=== PATIENT | female | born 1975 | race Hispanic/Latino ===

== ENCOUNTER → 2021-05-06 16:40 | Outpatient (CLI) | payer OTHER, SELFPAY ==
--- NOTE | ~2021-05-06 | MM_ITS ---
EXAMINATION: MM screening [facility] BI w opal HISTORY: Screening TECHNIQUE: Craniocaudal and mediolateral oblique 3-D tomosynthesis images were obtained and synthetic 2-D images were generated. CAD analysis was submitted and interpreted. COMPARISON: Comparison to multiple prior studies sequentially, with oldest reviewed study dated 04/2015. BREAST PARENCHYMAL COMPOSITION: There are scattered areas of fibroglandular density. FINDINGS: There is no evidence of suspicious mass, calcification, or architectural distortion to sugg est malignancy in either breast. There has been no suspicious interval change. IMPRESSION: 1. No mammographic evidence of malignancy. 2. Recommend routine screening mammography in one year. BI-RADS Category 1: Negative Reviewed, dictated and finalized at location A.
== END ==
PROVIDERS: PCP Family Medicine; Visit Provider Nurse Practitioner
DX: Z12.31 Encounter for screening mammogram for malignant neoplasm of breast (principal)
CPT/HCPCS: 77063; 77067

== ENCOUNTER 2022-09-02 15:54 | Emergency (ER) | payer OTHER, SELFPAY ==
--- NOTE | ~2022-09-02 | XR_ITS ---
EXAMINATION: XR knee RT min 4V DATE: 09/02/2022 16:38 INDICATION: Right knee pain. Injury. TECHNIQUE: 4 views of right knee were obtained. COMPARISON: None. FINDINGS: Bone alignment is normal. No fracture. There is mild tricompartmental osteoarthritis charac terized by tiny osteophytes. No joint space narrowing. No knee joint effusion. IMPRESSION: 1. Mild right knee osteoarthritis. Reviewed, dictated and finalized at location A. R SH[employer]S
[2022-09-02 16:04] VITALS: BP 146/72; PULSE 96; RESP 16; TEMP 36.5; O2SAT 100
--- NOTE | 2022-09-02 16:45 | ED.LOWEXIN ---
HPI - Extremity Injury (Lower) General Chief Complaint: Extremity Injury, Lower Stated Complaint: R KNEE INJURY Time Seen by Provider: 09/02/22 16:29 Source: patient Mode of arrival: ambulatory Limitations: no limitations History of Present Illness HPI Narrative: Patient presents today complaining of a right knee injury. At 2:45 a.m. this afternoon she was taking her dog for a walk when she twisted in the entryway to her home, feeling a pop in her knee and sudden pain. She currently rates her pain 7/10 has tried no [id number]-[id number] treatment prior to arrival. She also reports some tingling to her right foot. Pain increases significantly with weight-bearing or movement of the knee. Related Data Allergies Allergy/AdvReac Type Severity Reaction Status Date / Time Penicillins Allergy Unknown Nausea Verified 09/02/22 16:13 Review of Systems Review of Systems: CONSTITUTIONAL: Denies body aches, fever, chills, or sweats. EYES: Denies visual changes, redness, or discharge. ENT: Denies rhinorrhea, congestion, sore throat, or otalgia. CARDIOVASCULAR: Denies chest pain, palpitations, or edema. RESPIRATORY: Denies cough or dyspnea. GASTROINTESTINAL: Denies abdominal pain, nausea, vomiting, or diarrhea. GENITOURINARY: Denies dysuria or hematuria. SKIN: Denies rash, itching, or wounds. MUSCULOSKELETAL: Denies back pain, or myalgia.+ right knee pain NEUROLOGIC: Denies headache, numbness, or weakness.+ right foot tingling PSYCH: Denies depression or anxiety. PMFSH Surgical History Surgical History H/O: hysterectomy ovaries intact Social History Social History Smoking status: Never smoker Comments At time of signature, I have reviewed and agree with nursing past medical, surgical, social and family history unless otherwise noted. Please see nursing chart for further information. There is no relevant family history pertinent to the presenting complaint Exam Narrative: GENERAL: Well-appearing, well-nourished, and in no acute distress. HEAD: Normocephalic, atraumatic. EYES: EOMI. No redness or drainage. Conjunctivae normal. ENT: Mucous membranes pink and moist. NECK: Normal AROM. CHEST: No respiratory distress. EXTREMITIES: Right knee: Scant tenderness posteriorly. Mild tenderness of the patella. Patient localizes pain to the medial full joint line, but has no tenderness to this area. No edema noted. No ecchymosis or erythema noted. Patient has full range of motion of the knee with increased pain with flexion, extension, and internal rotation. Distal sensation intact. Capillary refill normal. Posterior tibial pulse normal. SKIN: Warm, dry, no rash. Capillary refill normal. Normal skin turgor. NEURO: No focal deficits. Alert and oriented x3. Gait steady. PSYCH: Normal affect. No signs of depression or anxiety. Course Course Level of Care: Express Care Visit Vital Signs Vital signs: Vital Signs Temperature 97.7 F 09/02/22 16:04 Pulse Rate 96 09/02/22 16:04 Respiratory Rate 16 09/02/22 16:04 Blood Pressure 146/72 H 09/02/22 16:04 Pulse Oximetry 100 09/02/22 16:04 Temperature 97.7 F 09/02/22 16:04 Pulse Rate 96 09/02/22 16:04 Respiratory Rate 16 09/02/22 16:04 Blood Pressure 146/72 H 09/02/22 16:04 Pulse Oximetry 100 09/02/22 16:04 Oxygen Delivery Room Air 09/02/22 16:05 Reviewed. Pt has been instructed to follow up with her PCP regarding her elevated blood pressure today. MDM - Extremity Injury (Lower) MDM Narrative Medical decision making narrative: X-rays negative for anything acute. Discussed conservative treatment at home and follow-up with PCP or orthopedics if symptoms do not improve. No prescription indicated at this time. Differential Diagnosis Differential diagnosis: Likely other (Knee sprain, meniscus injury, ligament injury) Imag
== END 2022-09-02 17:00 | disposition home or self-care (01) ==
PROVIDERS: Emergency Provider Nurse Practitioner; PCP Family Medicine
DX: S89.91XA Unspecified injury of right lower leg, initial encounter (principal); X50.9XXA Other and unspecified overexertion or strenuous movements or postures, initial encounter; Y93.K1 Activity, walking an animal
CPT/HCPCS: 73564; 99213; G0463

== ENCOUNTER → 2022-09-22 11:23 | Outpatient (CLI) | payer OTHER, SELFPAY ==
--- NOTE | ~2022-09-22 | MR_ITS ---
EXAMINATION: MR knee RT wo con DATE: 09/22/2022 11:59 INDICATION: Generalized right knee pain, twisted knee, heard a pop on September 02, 2022. TECHNIQUE: Magnetic resonance imaging (MRI) of the right knee was performed without intravenous contr ast. Sequences included axial PD-weighted FS FSE, coronal PD-weighted FSE and PD-weighted FS FSE, sag ittal PD-weighted FSE, and sagittal T2-weighted FS FSE. COMPARISON: X-ray right knee 09/02/2022. FINDINGS: Medial compartment: Oblique linear meniscal defect of the anterior horn and body, extending to the superior surface. Poss ible small posterior meniscal cyst. Moderate diffuse thinning of cartilage. Mild osteophytosis. Lateral compartment: Meniscus intact. Moderate diffuse thinning of cartilage. Mild osteophytosis. Patellofemoral compartment: Mild diffuse cartilage thinning. Mild osteophytosis. Intact retinacula. Ligaments and tendons: ACL, PCL, MCL, and LCL are intact. The remaining flexor and extensor tendons are intact. Fluid: Minimal volume joint space fluid. Osseous/other: No suspicious diffuse or focal marrow signal IMPRESSION: 1. Oblique articular surface tear of the anterior horn and body, medial meniscus. 2. Mild tricompartmental osteoarthritis. Reviewed, dictated and finalized at location K. DENTIAL SUBSTANCE ABUSE COUNSELOR IMPRESSION: 1. Oblique articular surface tear of the anterior horn and body, medial meniscu s. 2. Mild tricompartmental osteoarthritis.
== END ==
PROVIDERS: PCP Family Medicine; Visit Provider Orthopaedic Surgery
DX: S83.241A Other tear of medial meniscus, current injury, right knee, initial encounter (principal); X58.XXXA Exposure to other specified factors, initial encounter; M17.11 Unilateral primary osteoarthritis, right knee
CPT/HCPCS: 73721

== ENCOUNTER 2022-10-14 01:07 | Day surgery (SDC) | payer OTHER, SELFPAY ==
[2022-09-30 11:16] VITALS: BMI 37.0
--- NOTE | 2022-09-30 11:22 | PC.NURSE ---
Addendum entered by Meghna Monae RN 10/02/22 14:59: PT TO ARRIVE AT 0900 ON 10/14/22 FOR SURGERY AT 1100. Original Note: Report to the Outpatient Waiting Room, entrance under the green pavilion located off [facility], at time 1130 on date 10/07/22. Planned Procedure Time: 1330. Time changes happen often and if your time is changed the preop area will call you the afternoon before. - You and your visitor will be asked to self-screen and do not enter if you have any COVID symptoms. - Only one visitor is requested with a max of two and NO children visitors are allowed at this time. - The patient visitor may be requested to leave or wait in car when not with patient due to distancing restrictions. - A mask is optional within the hospital at this time. Patients may have clear liquids (water, carbonated beverages, clear teas, apple juice) until 3 hours prior to surgery with a maximum of 20 ounces. - No food from midnight until time of surgery Take the following medications with a SIP of water the morning of surgery: LEVOTHYROXINE DO NOT STOP ANY OF YOUR OTHER PRESCRIPTION MEDICATIONS PRIOR TO SURGERY EXCEPT THE FOLLOWING Medications to discontinue per physician: VITAMINS Date to take last dose: 10/03/22 Please no make-up, nail prydeinig, hairspray, perfume, deodorant, or body powder the day of surgery. No jewelry (including any body piercings) or valuables the day of surgery, leave them at home. Please take a shower or bath the night before, or the morning of, surgery with an antibacterial soap. Wear comfortable, loose fitting clothing. - Jewelry must be removed prior to entering the operating room. Rings and piercings that are not removed may be cut off. - The hospital will not accept responsibility for valuables. - Please leave all valuables, including medications, at home the day of surgery. If you are going home after surgery, a licensed motorcoach driver must drive you home. - NO public transportation without another adult if you receive anesthesia. - We recommend that an adult stay with you for 24 hours following discharge. - We also recommend that you do not drive, make important decision, drink alcoholic beverages, or take any drugs that were not prescribed by your health care provider for at least 24 hours after your discharge time. Follow any additional instructions given to you from your surgeon. If you or anyone in your household have experienced Covid symptoms in the past week, please notify your surgeon or the nurse liaison at the phone number below for possible testing. Telephone instructions given to LUZ HEDRICK and asked if any additional questions and then verbalized understanding. Patient advised to call surgeon office or pre surgery nurse liaison [phone] if any additional questions.
--- NOTE | 2022-10-02 14:59 | PC.NURSE ---
Pt states no changes in medications or health history since initial interview. Pre-op instructions reviewed with pt. Pt denies further questions at this time.
[2022-10-14] VITALS (12 sets, daily range): BP systolic 113–155; BP diastolic 58–90; PULSE 80–103; RESP 14–20; TEMP 36.7–37.3; O2SAT 97–100
--- NOTE | 2022-10-14 07:17 | WPDHPUPDATE1 ---
History and Physical Update Update Date/Time: 10/14/22 07:17 History and Physical has been reviewed, including an updated exam of the patient. There are NO changes in the patient's condition. Risks, benefits, and alternatives have been discussed and questions answered. Patient agrees to proceed with procedure.
[2022-10-14] MEDS: LACTATED RINGERS 1,000 ML 30 ML IV CONT ×2 (09:42→11:50)
[2022-10-14] MEDS: ACETAMINOPHEN 500 MG TABLET 1000 MG PO (09:52)
[2022-10-14] MEDS: CELECOXIB 200 MG CAPSULE PO (09:52)
--- NOTE | 2022-10-14 10:16 | WPDANESEPPF ---
Anes - Initial Pre Proc Eval Procedure: Operation Date: 10/14/22 11:00 Proposed Procedures p Right Knee Arthroscopy - Waldemar Shi MD Date/Time: 10/14/22 10:16 Surgeon: Waldemar Shi MD Pre Op Diagnosis: Rt Medial Meniscus Tear Patient Data Age: 47 Gender: F Height: 1.65 m Weight: 103.7 kg Last Vital Signs Temp 36.7 C 10/14/22 09:32 Pulse 93 10/14/22 09:32 Resp 16 10/14/22 09:32 BP 147/81 H 10/14/22 09:32 Pulse Ox 100 10/14/22 09:32 O2 Del Method Room Air 10/14/22 09:32 Allergies Allergy/AdvReac Type Severity Reaction Status Date / Time Penicillins Allergy Unknown Nausea Verified 10/14/22 09:18 Home Medications Medication Instructions Recorded Confirmed Type levothyroxine 75 mcg tablet See Rx Instructions .Route 12/31/21 10/14/22 Rx .COMPLEX #90 tabs cholecalciferol (vitamin D3) 25 25 mcg PO DAILY 09/03/22 10/14/22 History mcg (1,000 unit) capsule loratadine-pseudoephedrine ER 10 1 tablet PO HS 09/30/22 10/14/22 History mg-240 mg tablet,extended [id number] (Claritin-D 24 Hour) Patient hx anesthesia problems: post op nausea/vomiting Family hx anesthesia problems: none Results Review: All pre-operative results and documents have been reviewed as part of the pre-operative evaluation. [facility] Past Medical History Medical History Right knee injury Surgical History Surgical History H/O: hysterectomy ovaries intact Family History Family History Other H/O: stroke High cholesterol Hypertension Social History Social History Smoking status: Never smoker Alcohol intake: current Alcohol use details: 2/MONTH Substance use: never Substance use type: does not use Lack of Transportation: No Lack of Food: Never True Current Housing: I Have Housing Concerned About Future Housing: No Difficulty Paying Gas/Electric Bills: No Difficulty Paying for Meds: No Currently Unemployed: No Education: High School Diploma/GED Difficulty w/ Childcare or Family Care: No Living arrangements: with family Spiritual care concerns: No Anes - Eval Final PreProcedure Day of Procedure 10/14/22 10:16 Patient weight: obese Heart: regular rate and rhythm Lungs: clear to auscultation Airway: Mallampati scale class II Neurological: alert and oriented Last oral intake: >/= 8 hours ASA classification: II Emergent: no Anesthetic plan: proceed Anesthesia type and monitoring: general LMA and standard monitoring Results Review: All pre-operative results and documents have been reviewed as part of the pre-operative evaluation. Informed Consent: The patient's anesthetic plan and its attendant risks and benefits were discussed with the patient/family/POA. Questions were solicited and answers provided to the satisfaction of the patient/family/POA.
[2022-10-14] MEDS: SCOPOLAMINE 1.5 MG PATCH TRANSDERM (10:31)
[2022-10-14] MEDS: ceFAZolin 2 GM/D5W 50 ML 2 GM/50 ML BAG IVPB (10:37)
[2022-10-14] MEDS: BUPivacaine HCL 0.5% PF 30 ML VIAL INFILTRATE (10:58)
--- NOTE | 2022-10-14 12:00 | W.PM.PROC2 ---
Procedure Note - Detailed Date of Procedure 10/14/22 Pre-op Diagnosis Rt Medial Meniscus Tear Post-op Diagnosis Same Procedure Performed RIGHT KNEE SCOPE Surgeon Waldemar Shi MD Anesthesia General Description of Procedure PATIENT WAS TAKEN TO THE OR. RIGHT LEG WAS PREPPED AND DRAPED STERILE. TROCARS WERE PLACED IN THE USUAL FASHION. CAMERA WAS INTRODUCED. THERE WAS MILD CHONDROMALACIA TO THE PATELLA FEMORAL JOINT. THERE WAS A LOT OF SYNOVITIS IN THE SUPERIOR MEDIAL COMPARTMENT AND INFRA PATELLA REGION. THE MEDIAL COMPARTMENT SHOWED MILD CHONDROMALACIA TO THE MEDIAL FEMORAL CONDYLE. A SHAVER WAS USED TO PREFORM A CHONDROPLASTY. THERE WAS A COMPLEX MEDIAL MENISCUS TEAR. THE TEAR EXTENDED FROM THE ANTERIOR HORN TO POSTERIOR HORN INCLUDING THE ROOT. THE TEAR WAS RESECTED WITH A BITER AND A SHAVER DOWN TO A SMOOTH BASE. THE ACL WAS INTACT. THE LATERAL MENISCUS WAS NOT TORN THE LATERAL COMPARTMENT HAD NO CHONDROMALACIA. THE PATELLO FEMORAL JOINT UNDERWENT MINIMAL CHONDROPLASTY. SYNOVECTOMY WAS PREFORMED IN THE SUPERIOR MEDIAL COMPARTMENT AND INFRA PATELLA REGION. THE WOUNDS WERE APPROXIMATED WITH 4.0 NYLON. STERILE DRESSING WAS APPLIED. PATIENT WAS EXTUBATED. Estimated Blood Loss -5.0 Complications No immediate complications Condition Stable Disposition PACU
[2022-10-14] MEDS: ONDANSETRON INJ 4 MG/2 ML VIAL IV PUSH (12:45)
[2022-10-14] MEDS: fentaNYL CITRATE INJ (*CRX) 100 MCG/2 ML VIAL 25 MCG IV PUSH ×4 (13:07→13:28)
[2022-10-14] MEDS: oxyCODONE HCL (*CRX) 5 MG TAB IR PO (14:29)
== END 2022-10-14 15:05 | disposition home or self-care (01) ==
PROVIDERS: PCP Family Medicine; Visit Provider Orthopaedic Surgery
PROC: (CPT 29870; principal; 2022-10-14 11:00)
DX: S83.231A Complex tear of medial meniscus, current injury, right knee, initial encounter (principal); X50.0XXA Overexertion from strenuous movement or load, initial encounter; E66.9 Obesity, unspecified; Z68.38 Body mass index [BMI] 38.0-38.9, adult
CPT/HCPCS: 29881; A9270; J0690; J1100; J1200; J2250; J2405; J2704; J3010; J7120

== ENCOUNTER → 2022-11-03 16:37 | Outpatient (CLI) | payer OTHER, SELFPAY ==
--- NOTE | ~2022-11-03 | MM_ITS ---
EXAMINATION: MM screening [facility] BI w opal HISTORY: Screening TECHNIQUE: Craniocaudal and mediolateral oblique 3-D tomosynthesis images were obtained and synthetic 2-D images were generated. CAD analysis was submitted and interpreted. COMPARISON: Comparison to multiple prior studies sequentially, with oldest reviewed study dated 04/2015. BREAST PARENCHYMAL COMPOSITION: There are scattered areas of fibroglandular density. FINDINGS: There are developing asymmetries in the upper outer quadrant of the right breast. The left breast is stable without evidence for malignancy. IMPRESSION: 1. Developing right breast asymmetries. 2. Additional mammographic views and possible breast ultrasound are recommended. BI-RADS Category 0: Incomplete: Needs additional imaging evaluation. Reviewed, dictated and finalized at location A. IMPRESSION: 1. Developing right breast asymmetries. 2. Additional mammographic views and possible breast ultrasound are recommended . BI-RADS Category 0: Incomplete: Needs additional imaging evaluation.
== END ==
PROVIDERS: PCP Family Medicine; Visit Provider Family Medicine
DX: Z12.31 Encounter for screening mammogram for malignant neoplasm of breast (principal); R92.8 Other abnormal and inconclusive findings on diagnostic imaging of breast
CPT/HCPCS: 77063; 77067

== ENCOUNTER 2022-11-23 14:16 | Outpatient (CLI) | payer OTHER, SELFPAY ==
--- NOTE | ~2022-11-23 | MM_ITS ---
EXAMINATION: MM diagnostic [facility] RT w opal HISTORY: Right breast asymmetries on screening mammogram TECHNIQUE: Additional 3-D tomosynthesis images of the right breast were performed and synthetic 2-D i mages were generated. CAD analysis was submitted and interpreted. COMPARISON: 11/03/2022, 05/06/2021, 06/15/2018 FINDINGS: There is a return to baseline fibroglandular appearance with spot compression of the right breast in the area questioned on screening mammogram. IMPRESSION: 1. No mammographic evidence of malignancy. 2. Recommend routine screening mammography in one year. BI-RADS Category 1: Negative Reviewed, dictated and finalized at location A.
== END 2022-11-23 14:17 | disposition home or self-care (01) ==
PROVIDERS: PCP Family Medicine; Visit Provider Nurse Practitioner Family
DX: R92.8 Other abnormal and inconclusive findings on diagnostic imaging of breast (principal)
CPT/HCPCS: 77061; 77065; G0279

== ENCOUNTER 2023-05-29 08:55 | Emergency (ER) | payer OTHER, SELFPAY ==
[2023-05-29 09:35] VITALS: BP 136/86; PULSE 86; RESP 16; TEMP 36.7; O2SAT 100
--- NOTE | 2023-05-29 10:08 | ED.GENADULT ---
HPI - General Adult General Chief complaint: Ear Stated complaint: Left Ear Pain and Sore Throat Source: patient Mode of arrival: ambulatory Limitations: no limitations History of Present Illness HPI narrative: Patient presents for evaluation of sick symptoms for last 2 days. She initially had some sinus congestion and drainage that she attributed to allergies. She has since developed left-sided ear pain, sore throat, and cervical lymphadenopathy. She reports chills but denies any fever, cough, nausea, vomiting or diarrhea. She lives with her elderly chronically ill mother. She tried what sounds to be chloraseptic spray with minimal improvement in her symptoms thereafter. She does not smoke. Related Data Home Medications Medication Instructions Recorded Confirmed cholecalciferol (vitamin D3) 25 25 mcg PO DAILY 09/03/22 05/29/23 mcg (1,000 unit) capsule Allergies Allergy/AdvReac Type Severity Reaction Status Date / Time Penicillins Allergy Unknown Nausea Verified 10/14/22 09:18 Review of Systems Review of Systems: CONSTITUTIONAL: Reports chills. Denies fever, or sweats. EYES: Denies visual changes, redness, or discharge. ENT: Reports sinus congestion, postnasal drainage, sore throat, left sided ear pain and left sided cervical lymphadenopathy. CARDIOVASCULAR: Denies chest pain, palpitations, or edema. RESPIRATORY: Denies cough or dyspnea. GASTROINTESTINAL: Denies abdominal pain, nausea, vomiting, or diarrhea. GENITOURINARY: Denies dysuria or hematuria. SKIN: Denies rash or itching. MUSCULOSKELETAL: Denies back pain, joint pain, or myalgia. NEUROLOGIC: Denies headache, numbness, dizziness, or weakness. PSYCHIATRIC: Denies anxiety or depression. [facility] Past Medical History Medical History Right knee injury Surgical History Surgical History H/O: hysterectomy ovaries intact Family History Family History Other H/O: stroke High cholesterol Hypertension Social History Social History Smoking status: Never smoker Alcohol intake: current Alcohol use details: 2/MONTH Substance use: never Substance use type: does not use Lack of Transportation: No Lack of Food: Never True Current Housing: I Have Housing Concerned About Future Housing: No Difficulty Paying Gas/Electric Bills: No Difficulty Paying for Meds: No Currently Unemployed: No Education: High School Diploma/GED Difficulty w/ Childcare or Family Care: No Living arrangements: with family Spiritual care concerns: No Exam Narrative: GENERAL: Well-appearing, well-nourished, and in no acute distress. HEAD: Normocephalic, atraumatic. EYES: PERRLA and EOMI. ENT: Nares clear, no rhinorrhea or epistaxis. Mucous membranes moist. Posterior pharyngeal erythema without exudate. Uvula is midline. Bilateral TMs pearly hernandez nonbulging NECK: Supple. No adenopathy or masses. No carotid bruits or JVD CHEST: Clear to auscultation. No respiratory distress. No wheezes rales or rhonchi HEART: Regular rate and rhythm. No murmur heard. Normal peripheral pulses. ABDOMEN: Soft, nontender, nondistended, normal active bowel sounds. EXTREMITIES: Normal range of motion. No edema. SKIN: Warm, dry, no rash. NEURO: No focal deficits. Alert and oriented x3. PSYCH: Normal mood and affect. Course Course Emergency Course: This is a 48-year-old female who presented for evaluation of sick symptoms. Rapid strep was negative. Through shared decision making we opted to proceed with abx therapy in case test today a false negative, being that she lives with her elderly and chronically ill mother. She should follow up with her primary provider and go to the ER for worsening symptoms. Pt in agreement
== END 2023-05-29 10:05 | disposition home or self-care (01) ==
PROVIDERS: Emergency Provider Nurse Practitioner; PCP Family Medicine
DX: J02.9 Acute pharyngitis, unspecified (principal)
CPT/HCPCS: 87081; 87880; 99213; G0463

== ENCOUNTER 2023-10-05 15:48 | Outpatient (CLI) | payer OTHER, SELFPAY ==
--- NOTE | ~2023-10-05 | XR_ITS ---
EXAMINATION: XR chest 2V Exam Date/Time: 10/05/2023 15:54 BUSINESS PROCESS MANAGER HISTORY: R05.9 - Cough, unspecified Comparison: None. RESULT: Lines, tubes, and devices: None. Lungs and pleura: Clear. Cardiomediastinal silhouette: Normal. Other: No acute osseous or upper abdominal finding. IMPRESSION: No acute cardiopulmonary process. Reviewed, dictated and finalized at location K. NESS PROCESS MANAGER
== END 2023-10-05 15:49 ==
PROVIDERS: PCP Family Medicine; Visit Provider Family Medicine
DX: R05.9 Cough, unspecified (principal)
CPT/HCPCS: 71046

== ENCOUNTER 2023-10-11 00:47 | Day surgery (SDC) | payer OTHER, SELFPAY ==
[2023-09-17 12:48] VITALS: BMI 40.4
--- NOTE | 2023-10-08 12:41 | SUR.PREOP ---
Patient called regarding upcoming procedure. Reviewed preop instructions, appointment times, and procedure prep.
[2023-10-11 07:33] VITALS: BP 150/65; PULSE 96; RESP 18; TEMP 36.2; O2SAT 100
[2023-10-11] MEDS: LACTATED RINGERS 1,000 ML 150 ML IV CONT (07:41)
--- NOTE | 2023-10-11 08:07 | P.PNAN_ITS ---
Anes - Initial Pre Proc Eval Procedure: Operation Date: 10/11/23 08:30 Proposed Procedures p Screening Colonoscopy - Ricardo Xiao MD Date/Time: 10/11/23 08:07 Surgeon: Ricardo Xiao MD Pre Op Diagnosis: neoplasm screening Patient Data Age: 48 Gender: F Height: 1.68 m Weight: 108 kg Last Vital Signs Temp 97.1 F L 10/11/23 07:33 Pulse 96 10/11/23 07:33 Resp 18 10/11/23 07:33 BP 150/65 H 10/11/23 07:33 Pulse Ox 100 10/11/23 07:33 O2 Del Method Room Air 10/11/23 07:33 Allergies Allergy/AdvReac Type Severity Reaction Status Date / Time Penicillins AdvReac Unknown Nausea Verified 10/11/23 07:34 Home Medications Medication Instructions Recorded Confirmed Type cholecalciferol (vitamin D3) 25 25 mcg PO DAILY 09/03/22 10/05/23 History mcg (1,000 unit) capsule levothyroxine 75 mcg tablet See Rx Instructions .Route 06/28/23 10/05/23 Rx .COMPLEX #90 tabs loratadine-pseudoephedrine ER 10 1 tablet PO HS #90 tabs 08/06/23 10/05/23 Rx mg-240 mg tablet,extended [id number] (Claritin-D 24 Hour) amlodipine 5 mg tablet 5 mg PO DAILY #90 tabs 10/05/23 10/05/23 Rx Patient hx anesthesia problems: post op nausea/vomiting Family hx anesthesia problems: none Results Review: All pre-operative results and documents have been reviewed as part of the pre-operative evaluation. [facility] Past Medical History Medical History Right knee injury Surgical History Surgical History H/O: hysterectomy ovaries intact Family History Family History Other H/O: stroke High cholesterol Hypertension Social History Social History Smoking status: Never smoker Alcohol intake: current Drinks per week: 2 Alcohol use details: socially Substance use: never Substance use type: does not use Do You Feel Safe in your Home?: Yes Lack of Transportation: No Lack of Food: Never True Current Housing: I Have Housing Concerned About Future Housing: No Difficulty Paying Gas/Electric Bills: No Difficulty Paying for Meds: No Currently Unemployed: No Education: High School Diploma/GED Difficulty w/ Childcare or Family Care: No Living arrangements: with family Spiritual care concerns: No Anes - Eval Final PreProcedure Day of Procedure 10/11/23 08:07 Patient weight: obese Heart: regular rate and rhythm Lungs: clear to auscultation Neurological: alert and oriented Last oral intake: >/= 8 hours ASA classification: III Emergent: no Anesthetic plan: proceed Anesthesia type and monitoring: general GIVS and standard monitoring Results Review: All pre-operative results and documents have been reviewed as part of the pre- operative evaluation. Informed Consent: The patient's anesthetic plan and its attendant risks and benefits were discussed with the patient/family/POA. Questions were solicited and answers provided to the satisfaction of the patient/family/POA.
--- NOTE | 2023-10-11 08:21 | PM.HPGS ---
History of Present Illness History of Present Illness Consent: Risks, benefits, and alternatives have been discussed and questions answered. Patient agrees to proceed with procedure. Chief complaint: neoplasm screening Narrative: Tina Castillo is a 48 year old female here for first screening colonoscopy Review of Systems Constitutional: Constitutional: Denies headache(s) and Denies weakness Eyes: Eyes: Denies blurry vision ENT: Reports Normal hearing present, Denies headache(s) and Denies neck pain Cardiovascular: Cardiovascular: Denies chest pain and Denies dyspnea Respiratory: Respiratory: Denies dyspnea Gastrointestinal: Gastrointestinal: Reports no additional gastrointestinal complaints Genitourinary: Genitourinary: Denies dysuria Musculoskeletal: Musculoskeletal: Denies neck pain Integumentary/Breasts: Skin/Breast: Denies dry skin Neurologic: Reports Normal hearing present, Denies headache(s) and Denies weakness Psychiatric: Psychiatric: Denies anxiety Endocrine: Endocrine: Denies change in body appearance Hematologic/Lymphatic: Hematologic/Lymphatic: Denies easy bleeding Allergic/Immunologic: Allergic/Immunologic: Denies urticaria [facility] Past Medical History Medical History (Updated 10/11/23 @ 08:23 by Ricardo Xiao MD) Colon cancer screening Right knee injury Surgical History Surgical History H/O: hysterectomy ovaries intact Family History Family History Other H/O: stroke High cholesterol Hypertension Social History Social History Smoking status: Never smoker Alcohol intake: current Drinks per week: 2 Alcohol use details: socially Substance use: never Substance use type: does not use Do You Feel Safe in your Home?: Yes Lack of Transportation: No Lack of Food: Never True Current Housing: I Have Housing Concerned About Future Housing: No Difficulty Paying Gas/Electric Bills: No Difficulty Paying for Meds: No Currently Unemployed: No Education: High School Diploma/GED Difficulty w/ Childcare or Family Care: No Living arrangements: with family Spiritual care concerns: No Meds Home Medications and Allergies Home Medications Medication Instructions Recorded Confirmed Type cholecalciferol (vitamin D3) 25 25 mcg PO DAILY 09/03/22 10/05/23 History mcg (1,000 unit) capsule levothyroxine 75 mcg tablet See Rx Instructions .Route 06/28/23 10/05/23 Rx .COMPLEX #90 tabs loratadine-pseudoephedrine ER 10 1 tablet PO HS #90 tabs 08/06/23 10/05/23 Rx mg-240 mg tablet,extended [id number] (Claritin-D 24 Hour) amlodipine 5 mg tablet 5 mg PO DAILY #90 tabs 10/05/23 10/05/23 Rx Allergies Allergy/AdvReac Type Severity Reaction Status Date / Time Penicillins AdvReac Unknown Nausea Verified 10/11/23 07:34 Vital Signs Vital Signs - 24 hr 10/11/23 07:33 Temperature 97.1 F L Pulse Rate 96 Respiratory Rate 18 Blood Pressure 150/65 H Pulse Oximetry 100 Oxygen Delivery Room Air Exam Const: General: comfortable and no acute distress HENMT: Face/Nose/Sinus: Normal nares present Eyes: General: appearance normal, both eyes and all related structures Neck: Neck: no JVD Resp: Auscultation: clear to auscultation bilaterally Cardio: Rate: regular rate Rhythm: regular rhythm GI: Inspection: non-distended GI Palp: Yes Soft to palpation Skin: General skin exam: normal color Neuro: General: gait normal Speech: normal speech Extrem: General: normal to inspection Psych: Mental Status: mental status grossly normal Assessment and Plan Assessment and plan (1) Colon cancer screening: Code(s): Z12.11 - Encounter for screening for malignant neoplasm of colon Status: Acute Assessment and Plan: colonoscopy
[2023-10-11 08:41] VITALS: BP 122/76; PULSE 95; RESP 23; O2SAT 100
[2023-10-11 08:51] VITALS: BP 143/81; PULSE 92; RESP 25; O2SAT 100
[2023-10-11 09:01] VITALS: BP 143/84; PULSE 86; RESP 14; O2SAT 100
== END 2023-10-11 09:11 | disposition home or self-care (01) ==
PROVIDERS: PCP Family Medicine; Visit Provider Internal Medicine Gastroenterology
PROC: 0DJD8ZZ Inspection of Lower Intestinal Tract, Via Natural or Artificial Opening Endoscopic (ICD-10-PCS; CPT 45378; principal; 2023-10-11 08:30)
DX: Z12.11 Encounter for screening for malignant neoplasm of colon (principal); E66.9 Obesity, unspecified; Z68.38 Body mass index [BMI] 38.0-38.9, adult; Z98.890 Other specified postprocedural states
CPT/HCPCS: 45378; J2704; J7120

== ENCOUNTER 2024-05-16 13:57 | Outpatient (CLI) | payer OTHER, SELFPAY ==
--- NOTE | ~2024-05-16 | MM_ITS ---
EXAMINATION: MM screening alexia BI w opal HISTORY: Screening TECHNIQUE: Craniocaudal and mediolateral oblique 3-D tomosynthesis images were obtained and synthetic 2-D images were generated. CAD analysis was submitted and interpreted. COMPARISON: Comparison to multiple prior studies sequentially, with oldest reviewed study dated 05/10. BREAST PARENCHYMAL COMPOSITION: Not Dense: The breasts are almost entirely fatty. FINDINGS: There is a cluster of developing calcifications in the upper outer quadrant of the right br east posteriorly. The left breast is stable without evidence for malignancy. IMPRESSION: 1. Developing cluster of indeterminate calcifications upper outer quadrant of the right breast calculus tutor iorly. 2. Magnification views are recommended. BI-RADS Category 0: Incomplete: Needs additional imaging evaluation. Reviewed, dictated and finalized at location B. IMPRESSION: 1. Developing cluster of indeterminate calcifications upper outer quadrant of t he right breast posteriorly. 2. Magnification views are recommended. BI-RADS Category 0: Incomplete: Needs additional imaging evaluation.
== END 2024-05-16 13:58 | disposition home or self-care (01) ==
PROVIDERS: PCP Family Medicine; Visit Provider Family Medicine
DX: R92.1 Mammographic calcification found on diagnostic imaging of breast (principal); Z12.31 Encounter for screening mammogram for malignant neoplasm of breast
CPT/HCPCS: 77063; 77067

== ENCOUNTER 2024-06-15 07:43 | Outpatient (CLI) | payer OTHER, SELFPAY ==
--- NOTE | ~2024-06-15 | MM_ITS ---
EXAMINATION: MM diagnostic mammo unilat RT HISTORY: Follow-up right breast calcifications TECHNIQUE: Additional 3-D tomosynthesis images of the right breast were performed and synthetic 2-D i mages were generated. CAD analysis was submitted and interpreted. COMPARISON: Comparison to multiple prior studies sequentially, with oldest reviewed study dated 05/06. BREAST PARENCHYMAL COMPOSITION: Not dense: There are scattered areas of fibroglandular density. FINDINGS: There is a cluster of indeterminate calcifications in the upper outer quadrant of the right breast, posterior third. There are no suspicious masses or architectural distortion. IMPRESSION: 1. Clustered indeterminate calcifications upper outer quadrant of the right breast, posterior third. 2. Stereotactic biopsy recommended. BI-RADS category 4, suspicious findings. Reviewed, dictated and finalized at location B. STIC TECHNICIAN IMPRESSION: 1. Clustered indeterminate calcifications upper outer quadrant of the right zeb ast, posterior third. 2. Stereotactic biopsy recommended. BI-RADS category 4, suspicious findings.
== END 2024-06-15 07:44 | disposition home or self-care (01) ==
LOC: MICIMG 07:44
PROVIDERS: PCP Family Medicine; Visit Provider Family Medicine
DX: R92.8 Other abnormal and inconclusive findings on diagnostic imaging of breast (principal)
CPT/HCPCS: 77065

== ENCOUNTER 2024-06-27 08:11 | Emergency (ER) | payer OTHER, SELFPAY ==
[2024-06-27 08:20] VITALS: BP 149/96; PULSE 67; RESP 15; TEMP 36.2; O2SAT 100
--- NOTE | 2024-06-27 08:33 | ED_ITS ---
HPI - Back Pain/Injury General Chief Complaint: Back Pain/Injury Stated Complaint: Back Pain Time Seen by Provider: 06/27/24 08:40 Source: patient and RN notes reviewed Mode of arrival: ambulatory Limitations: no limitations History of Present Illness HPI Narrative: 49-year-old female presents with concern for right scapula pain. She reports it is just mildly uncomfortable when she is sitting still when she turns her head or moves her arm it hurts worse. Reports she woke last night when she rolled over and had the pain. She reports she tried he denies without relief. She took Aleve without relief. She denies decreased strength, sensation, range of motion in any upper extremity. She denies neck pain. MD elicited complaint: back pain Related Data Home Medications Medication Instructions Recorded Confirmed cholecalciferol (vitamin D3) 25 25 mcg PO DAILY 09/03/22 06/27/24 mcg (1,000 unit) capsule multivitamin 1 tablet PO DAILY 04/06/24 06/27/24 Allergies Allergy/AdvReac Type Severity Reaction Status Date / Time Penicillins AdvReac Unknown Nausea Verified 06/27/24 08:29 Review of Systems Review of Systems: CONSTITUTIONAL: Denies malaise, chills, sweats, or fever. CARDIOVASCULAR: Denies chest pain, palpitations, or edema. RESPIRATORY: Denies cough or dyspnea. SKIN: Denies rash or itching. MUSCULOSKELETAL: Reports right scapula pain NEUROLOGIC: Denies numbness, weakness, or headache. All systems reviewed & are unremarkable except as noted in HPI and below PMFSH Past Medical History Medical History GLADYS-inhibitor cough Knee pain, right Medial meniscus, anterior horn derangement Right knee injury Surgical History Surgical History H/O: hysterectomy ovaries intact Family History Family History Other H/O: stroke High cholesterol Hypertension Social History Social History Smoking status: Never smoker Alcohol intake: current Drinks per week: 2 Alcohol use details: socially Substance use: never Substance use type: does not use Do You Feel Safe in your Home?: Yes Lack of Transportation: No Lack of Food: Never True Current Housing: I Have Housing Concerned About Future Housing: No Difficulty Paying Gas/Electric Bills: No Difficulty Paying for Meds: No Currently Unemployed: No Education: High School Diploma/GED Difficulty w/ Childcare or Family Care: No Living arrangements: with family Spiritual care concerns: No Comments At time of signature, agree with nursing past medical, surgical, social and family history. There is no relevant family history pertinent to the presenting complaint Exam Narrative: GENERAL: Well-appearing, well-nourished, and in no acute distress. HEAD: Normocephalic, atraumatic. EYES: PERRLA and EOMI. NECK: Supple. No lymphadenopathy. CHEST: Speaks in full sentences. No respiratory distress. HEART: Regular rate and rhythm. Distal pulses palpable and equal, cap refill <3 seconds MUSCULOSKELETAL: Normal range of motion and strength in all extremities. Normal sensation in dermatomal distributions with sensitivity to light touch and pain. No tenderness to palpation. No paraspinal tenderness. Transfers from sitting to standing. SKIN: Warm, dry, no rash. No ecchymosis, erythema, open wounds to back. NEURO: No focal deficits. Alert and oriented x3 PSYCH: Normal mood and affect Course Course Emergency Course: Patient is aware of diagnosis, understands and agrees to treatment plan. Anticipatory guidance given. Patient agrees to follow-up as directed and is aware of reasons to seek care at the emergency department. Portions of this record may have been created with voice recognition software Level of Care: Express Care Visit Vital Signs Vital signs: Vital Signs Temperature 97.1 F L 06/27/24 08:20 Pulse Rate 67 06/27/24 08:20 Respiratory Rate 15 06/27/24 08:20 Blood Pressure 149/96 H 06/27/24 08:20 Pulse Oximetry 100 06/27/24 08:20 Oxygen Delivery Room Air 06/27/24 08:20 Temperature 97.1 F L 06/27/24 08:20 Pulse Rate 67 06/27/24 08:20 Respiratory Rate 15 06/27/24 08:20 Blood Pressure 149/96 H 06/27/24 08:20 Pulse Oximetry 100 06/27/24 08:20 Oxygen Delivery Room Air 06/27/24 08:20 Reviewed. MDM - Back Pain/Injury MDM Narrative Medical decision making narrative: I evaluated this in the [facility] care. History is obtained from patient who is an independent historian and physical exam was performed.? Available medical records were reviewed. ? Exam findings and relevant testing show no acute concerns or changes; patient is non-toxic appearing and is in no distress. No risk factors or findings concerning for epidural abscess, diskitis, vertebral osteomyelitis, cord compression, cauda equina, vertebral fracture or bone malignancy, AAA, or pyelonephritis. Patient instructed to consider further imaging and workup through their primary care physician as an outpatient if symptoms persist. ? Differential diagnosis and treatment plan were discussed with the patient. Patient agrees with discussion and after shared medical decision making agrees with plan of care. All questions were answered to the patient's satisfaction. Patient is appropriate for outpatient treatment and follow-up. Critical Care Time Critical Care Time Critical Care Time: No Discharge Plan Discharge Clinical Impression: Strain of left trapezius muscle Patient Disposition: Home, Self-Care Condition: Stable Instructions: Muscle Strain (ED) Additional Instructions: Please follow up with your Primary Care Doctor within 48-72 hours - call for an appointment. Gentle stretching as tolerated. Take Motrin 800mg every 6-8 hours with food for the next 2-3 days, take muscle relaxers every 8 hours as needed for muscle spasm- do not drive or make any important decisions while on this medication for it can make you drowsy. You may apply ice to the area as needed. If you experience any worsening pain, swelling, numbness, weakness please go to ER. Prescriptions: New cyclobenzaprine 10 mg tablet 10 mg PO TID PRN (Reason: muscle spasm) Qty: 20 0RF ibuprofen 800 mg tablet 800 mg PO Q6H PRN (Reason: pain) Qty: 30 0RF No Action cholecalciferol (vitamin D3) 25 mcg (1,000 unit) capsule 25 mcg PO DAILY multivitamin Tablet 1 tablet PO DAILY levothyroxine 75 mcg tablet See Rx Instructions .ROUTE .COMPLEX Qty: 90 1RF Dose Instruction: TAKE 1 TABLET DAILY Rx Instructions: TAKE 1 TABLET DAILY Follow-up/Referrals: Cristela Cook MD [Primary Care Provider] - Stand Alone Forms: Work/School Release IP Time of Disposition: 08:47
== END 2024-06-27 08:51 | disposition home or self-care (01) ==
PROVIDERS: Emergency Provider Nurse Practitioner; PCP Family Medicine
DX: S46.812A Strain of other muscles, fascia and tendons at shoulder and upper arm level, left arm, initial encounter (principal); X58.XXXA Exposure to other specified factors, initial encounter
CPT/HCPCS: 99213; G0463

== ENCOUNTER 2024-07-20 09:07 | Outpatient (CLI) | payer OTHER, SELFPAY ==
--- NOTE | ~2024-07-20 | MM_ITS ---
MM stereotactic bx RT, MM stereotactic specimen RT, MM post biopsy invasive RT EXAMINATION: MM stereotactic bx RT, MM stereotactic specimen RT, MM post biopsy invasive RT DATE: Flavio Juarez M.D. INDICATION: Abnormal calcifications in the right breast. Stereotactic core biopsy is requested evalu ate for malignancy. BREAST PARENCHYMAL COMPOSITION: Not dense: There are scattered areas of fibroglandular density. TECHNIQUE AND FINDINGS: The risks and potential benefits of the procedure were discussed with the patient and written informe d consent was obtained. The patient was placed in the prone position clustered at the table with the right breast in mediolateral compression, and the area of interest was localized and targeted utiliz ing digital imaging with stereotaxis. After sterile preparation of the skin, 1% lidocaine was utilized for local anesthesia at the skin pun cture site and 1% lidocaine with epinephrine was utilized for deeper local anesthesia/is about the bi opsy site. A 9G Eviva vacuum assisted biopsy needle was advanced to the level of the calcification o f interest from a lateral approach utilizing stereotactic guidance and a total of 6 tissue core biops ies were obtained. A specimen radiograph demonstrates that the calcifications of interest are included within the tissue cores. A tissue marker clip was then placed at the biopsy site. The needle was removed and hemosta sis was achieved. The patient tolerated the procedure well and there is no evidence of significant i mmediate complication. The patient was given verbal as well as written postprocedural instructions p rior to discharge from the department. Tissue cores were submitted to surgical pathology for histolo gic analysis. A 2-view right unilateral digital mammogram was obtained post procedure and this demonstrates that th e tissue marker clip is in expected position.] IMPRESSION: 1. Successful stereotactic biopsy of calcifications in the upper inner quadrant of the right breast with post procedure mammogram for marker placement. Please refer to pathology report for histologic analysis. Reviewed, dictated and finalized at location B. APPLICATIONS ASSOCIATE IMPRESSION: 1. Successful stereotactic biopsy of calcifications in the upper inner quadran t of the right breast with post procedure mammogram for marker placement. Plea se refer to pathology report for histologic analysis. IMPRESSION: 1. Successful stereotactic biopsy of calcifications in the upper inner quadran t of the right breast with post procedure mammogram for marker placement. Plea se refer to pathology report for histologic analysis.
== END 2024-07-20 09:08 | disposition home or self-care (01) ==
PROVIDERS: PCP Family Medicine; Visit Provider Family Medicine
DX: R92.1 Mammographic calcification found on diagnostic imaging of breast (principal); D24.1 Benign neoplasm of right breast
CPT/HCPCS: 19081; 88305; 88342

== ENCOUNTER 2024-10-25 08:17 | Emergency (ER) | payer OTHER, SELFPAY ==
[2024-10-25 08:29] VITALS: BP 130/70; PULSE 122; RESP 16; TEMP 36.8; O2SAT 98
[2024-10-25 08:38] LABS: EDSTREPNEGPOS1 Negative (Negative)
--- NOTE | 2024-10-25 08:40 | ED_ITS ---
HPI - URI/Sore Throat General Chief Complaint: Upper Respiratory Infection Stated Complaint: FEVER/SINUS DRAINAGE/SORE THROAT/COUGH History of Present Illness HPI Narrative: 49-year-old female presented for complaint of sore throat, nasal drainage and cough. Onset 3 days. Started with fever and body aches last night. Endorses temp up to 101.5. She took ibuprofen, DayQuil and NyQuil. Patient denies shortness of breath, wheezing, nausea, vomiting, diarrhea or lethargy. Related Data Home Medications ?Medication ?Instructions ?Recorded ?Confirmed ?Last Taken ?Type cholecalciferol (vitamin D3) 25 25 mcg PO DAILY 09/03/22 10/12/24 09/17/23 History mcg (1,000 unit) capsule multivitamin 1 tablet PO DAILY 04/06/24 10/12/24 Unknown History loratadine-pseudoephedrine ER 10 tablet PO 07/11/24 10/12/24 Unknown History mg-240 mg tablet,extended [id number] (Claritin-D 24 Hour) mecobalamin (vitamin B12) 1,000 1,000 mcg PO DAILY 07/19/24 10/12/24 Unknown History mcg chewable tablet uaurqloucxy-mep-cqqkobszx-hrb tablet PO 10/12/24 10/12/24 Unknown History 149-hyalur 500 mg-500 mg-66.7 mg tablet (Zdrcrpxiqqv-Xcvlubljpfz-BWU (with antiox)) Allergies Allergy/AdvReac Type Severity Reaction Status Date / Time Penicillins AdvReac Unknown Nausea Verified 10/25/24 08:31 Review of Systems Review of Systems: CONSTITUTIONAL: Reports body aches and fever EYES: Denies visual changes, redness, or discharge. ENT: Reports rhinorrhea, sore throat denies otalgia. CARDIOVASCULAR: Denies chest pain, palpitations, or edema. RESPIRATORY: Reports cough Denies dyspnea. GASTROINTESTINAL: Denies abdominal pain, nausea, vomiting, or diarrhea. NEUROLOGIC: Denies headache PMFSH Past Medical History Medical History GLADYS-inhibitor cough Medial meniscus, anterior horn derangement Right knee injury Knee pain, right Surgical History Surgical History H/O breast biopsy 07.20.24 intraductal papilloma R breast H/O: hysterectomy ovaries intact/ cervix is absent Family History Family History Other H/O: stroke High cholesterol Hypertension Social History Social History (Updated 10/12/24 @ 13:26 by Lisette Velasco MA) Smoking status: Never smoker Alcohol intake: current Alcohol use details: socially Substance use: never Substance use type: does not use Do You Feel Safe in your Home?: Yes Lack of Transportation: No Lack of Food: Never True Current Housing: I Have Housing Concerned About Future Housing: No Difficulty Paying Gas/Electric Bills: No Difficulty Paying for Meds: No Currently Unemployed: No Education: High School Diploma/GED Difficulty w/ Childcare or Family Care: No Living arrangements: with family Spiritual care concerns: No Exam Narrative: GENERAL: well-appearing, no acute distress. EYES: conjunctivae clear ENT: Mucous membranes moist. TM pearly hernandez with normal light reflex bilaterally; no tragal tenderness. Oropharynx not erythematous without lesions. No drooling, no hoarseness, no trismus, uvula midline. No tripod positioning, hot potato voice, or soft palate swelling. NECK: Supple. No lymphadenopathy CHEST: Clear to auscultation, breath sounds equal. No respiratory distress, speaks in full sentences. HEART: Regular rate and rhythm. No murmur heard. SKIN: Warm, dry, no rash. NEURO: Alert and oriented x3. Course Course Emergency Course: Patient is aware of diagnosis, understands and agrees to treatment plan. Anticipatory guidance given. Patient agrees to follow-up as directed and is aware of reasons to seek care at the emergency department. Portions of this record may have been created with voice recognition software Level of Care: Express Care Visit Vital Signs Vital signs: Vital Signs Temperature 98.3 F 10/25/24 08:29 Pulse Rate 122 H 10/25/24 08:29 Respiratory Rate 16 10/25/24 08:29 Blood Pressure 130/70 10/25/24 08:29 Pulse Oximetry 98 10/25/24 08:29 Temperature 98.3 F 10/25/24 08:29 Pulse Rate 122 H 10/25/24 08:29 Respiratory Rate 16 10/25/24 08:29 Blood Pressure 130/70 10/25/24 08:29 Pulse Oximetry 98 10/25/24 08:29 MDM - URI/Sore Throat MDM Narrative Medical decision making narrative: Negative flu, COVID, strep. Discussed physical exam findings. Advised supportive measures and signs/symptoms to go to the ER. Pt is appropriate for outpt treatment and f/u. Differential Diagnosis Differential diagnosis: Likely upper respiratory infection, sinusitis, viral infection, bronchitis, influenza and pharyngitis Lab Data Labs: Lab Results 10/25/24 Range/Units 08:36 POC Grp A Strep Screen Negative (Negative) Discharge Plan Discharge Clinical Impression: Viral infection Patient Disposition: Home, Self-Care Condition: Stable Instructions: Antibiotic Form, Upper Respiratory Infection (ED) Additional Instructions: Flu and COVID negative. Rapid strep swab was negative today You will be notified in a few days if the culture comes back positive for strep, and appropriate antibiotics will be called in at that time. if symptoms are due to a viral illness, it is not treated with antibiotics. Viral symptoms can be present for up to 10-14 days. Recommendations: Flonase spray and Zyrtec for sinus congestion Cough syrup may cause drowsiness; avoid driving or take it at night time. Coricidin HBP if you have hypertension Tylenol every 8 hours as needed for pain/fever Soft foods, cool liquids, warm tea. Gargle with warm saltwater twice a day. Chloraseptic spray and throat lozenges. Rest and stay hydrated. --Follow up with your PCP --Go to the ER immediately if you cannot swallow your saliva, trouble breathing/wheezing, throat swelling, pain is persistent and severe Patient Language: [place] Islander Prescriptions: No Action cholecalciferol (vitamin D3) 25 mcg (1,000 unit) capsule 25 mcg PO DAILY Claritin-D 24 Hour 10-240 mg tablet extended release 24 hr PO [id number]-[id number] [Hgzxbf-[id number] (with antiox)] 500-500-66.7 mg tablet PO losartan 50 mg tablet 50 mg PO DAILY Qty: 90 3RF multivitamin Tablet 1 tablet PO DAILY levothyroxine 75 mcg tablet See Rx Instructions .ROUTE .COMPLEX Qty: 90 1RF Dose Instruction: TAKE 1 TABLET DAILY Rx Instructions: TAKE 1 TABLET DAILY metformin 500 mg tablet extended release 24 hr See Rx Instructions PO .COMPLEX Qty: 180 0RF Rx Instructions: orally; week 1: 1 po q dinner. week2: 1 po breakfast and dinner. week 3: 1 po break/ 2 po dinner. week 4: 2 po break/2 po dinner mecobalamin (vitamin B12) 1,000 mcg tablet,chewable 1,000 mcg PO DAILY Follow-up/Referrals: Cristela Cook MD [Primary Care Provider] - Stand Alone Forms: Work/School Release IP Time of Disposition: 08:49
[2024-10-25 08:46] LABS: EDCOVIDSCREEN Negative (Negative)
[2024-10-25 08:47] LABS: EDINFLUASCREEN Negative (Negative); EDINFLUBSCREEN Negative (Negative)
== END 2024-10-25 08:50 | disposition home or self-care (01) ==
PROVIDERS: Emergency Provider Nurse Practitioner Family; PCP Family Medicine
DX: B34.9 Viral infection, unspecified (principal); Z20.822 Contact with and (suspected) exposure to COVID-19
CPT/HCPCS: 87081; 87426; 87804; 87880; 99213; G0463

== ENCOUNTER 2024-11-20 15:43 | Outpatient (CLI) | payer OTHER, SELFPAY ==
--- NOTE | ~2024-11-20 | CT_ITS ---
CT Scan of the Chest without Contrast: Clinical Indication: Pulmonary nodule Technique: Contiguous sections were acquired throughout the chest without intravenous contrast. Dose reduction technique was used on this scan by utilizing automated exposure control and iterative recon struction technique. The dose-length product (DLP) was 235.56 mGy-cm. Findings: There is no evidence of any significant mediastinal, hilar or axillary lymphadenopathy. The mediastin al soft tissues appear normal. There is no evidence of pleural or pericardial effusion. 8mm nodule present in the left upper lobe/lingula (axial image 56), with probable central calcificati on. Images through the upper abdomen reveal no abnormalities. Impression: 8mm left upper lobe/lingular nodule, likely granuloma. Consider follow-up exam in 6 months to ensure stability. Reviewed, dictated and finalized at [facility]. Impression: 8mm left upper lobe/lingular nodule, likely granuloma. Consider follow-up exam in 6 months to ensure stability.
== END 2024-11-20 15:44 | disposition home or self-care (01) ==
PROVIDERS: PCP Family Medicine; Visit Provider Family Medicine
DX: R91.1 Solitary pulmonary nodule (principal)
CPT/HCPCS: 71250

== ENCOUNTER 2025-04-24 08:12 | Outpatient (CLI) | payer OTHER, SELFPAY ==
--- NOTE | ~2025-04-24 | CT_ITS ---
EXAMINATION:CT chest high resolution wo ak DATE: 04/24/2025 08:38 INDICATION: Right lung nodule. TECHNIQUE: Computed tomography (CT) of the chest was performed without intravenous contrast. Automated exposure control and iterative reconstruction technique were employed. The dose-length product (DLP) was 645.23 mGy-cm. COMPARISON: Chest CT 11/20/2024 FINDINGS: There is mild scarring in paraspinal right lower lobe. There is mosaic attenuation the lungs, consistent with small airways disease. There is mild atelectasis bilaterally. There is a 5 mm nodule in right upper lobe that previously measured 6 mm. Calcified bilateral lung nodules including a calcified nodule in lingula are consistent with old granulomatous disease. No pleural effusion. The heart size is normal. No pericardial effusion. There is mild thoracic spondylosis. IMPRESSION: 1. Small lung nodule, likely benign. Reviewed, dictated and finalized at location E.
== END 2025-04-24 08:13 | disposition home or self-care (01) ==
PROVIDERS: PCP Family Medicine; Visit Provider Family Medicine
DX: R91.1 Solitary pulmonary nodule (principal)
CPT/HCPCS: 71250

== ENCOUNTER 2025-05-17 14:47 | Outpatient (CLI) | payer OTHER, SELFPAY ==
--- NOTE | ~2025-05-17 | MM_ITS ---
EXAMINATION: MM screening alexia BI w opal HISTORY: Screening TECHNIQUE: Craniocaudal and mediolateral oblique 3-D tomosynthesis images were obtained and synthetic 2-D images were generated. CAD analysis was submitted and interpreted. COMPARISON: Comparison to multiple prior studies sequentially, with oldest reviewed study dated , 06/02/2017 BREAST PARENCHYMAL COMPOSITION: The breasts are almost entirely fatty. FINDINGS: There is no evidence of suspicious mass, calcification, or architectural distortion to suggest malignancy in either breast. IMPRESSION: 1. No mammographic evidence of malignancy. 2. Recommend routine screening mammography in one year. BI-RADS Category 1: Negative Reviewed, dictated and finalized at location B.
== END 2025-05-17 14:48 | disposition home or self-care (01) ==
LOC: MICIMG 14:48
PROVIDERS: PCP Family Medicine; Visit Provider Family Medicine
DX: Z12.31 Encounter for screening mammogram for malignant neoplasm of breast (principal)
CPT/HCPCS: 77063; 77067

== ENCOUNTER 2025-08-06 07:46 | Outpatient (CLI) | payer OTHER, SELFPAY ==
--- OUTSIDE RECORDS SUMMARY | 2025-08-06 07:52 | XMS_ITS | Clinical Summary ---
Author Organization [facility] Address [address] [place] [phone] Phone Care Team Providers Care Machines Technician Name Role Phone Cristela Cook MD Primary Care Provider [phone] Allergies Active Allergy Reactions Criticality Noted Date Comments Penicillins Other (See Comments) 04/08/2024 As a child, reaction led to hospitalization Medications levothyroxine 75 mcg tablet Take 75 mcg by mouth daily in the morning. Active amLODIPine (NORVASC) 5 mg tablet Take 5 mg by mouth daily. Active spironolactone (ALDACTONE) 50 mg tablet Take 50 mg by mouth 2 times daily. Active valsartan-hydroC HLOROthiazide (DIOVAN HCT) 160-25 mg tablet Take 1 Tablet by mouth daily. Active cholecalciferol, vitamin D3, 1,000 unit Take 1,000 Units by mouth daily. Active multivit,calc,mi ns/iron/folic (ONE-A-DAY WOMENS FORMULA ORAL) Take 1 Tablet by mouth daily. Active loratadine-pseud oephedrine (CLARITIN-D) 10-240 mg Extended Release 24 hour tablet Take 1 Tablet by mouth daily at bedtime. Active Active Problems Problem Noted Date Diagnosed Date Leukocytosis (leucocytosis) 04/08/2024 Acute colitis 04/08/2024 Dehydration 04/08/2024 Hyponatremia 04/08/2024 Elevated d-dimer 04/08/2024 Hypothyroidism 04/08/2024 HTN (hypertension), benign 04/08/2024 Family History Medical History Relation Name Comments Cancer Father Hypertension Mother Stroke Mother Relation Name Status Comments Father Mother Social History Tobacco Use Types Packs/Day Years Used Date Smoking Tobacco: Never Smokeless Tobacco: Never Alcohol Use Standard Drinks/Week Comments Yes 1 (1 standard drink = 0.6 oz pur e alcohol) social drinker Feeling Safe Answer Date Recorded Are you in a relationship wi th someone who hurts you emotionally and/or physically? No 04/08/2024 Food Insecurity Answer Date Recorded Patient needs follow up regardin 11/30/2024 Transportation Needs Answer Date Record ed Patient needs follow up regardin 11/30/2024 Housing Stability Answer Date Recorded Social/Environmental Concerns No concerns Utility Needs Answer Date Recorded Patient needs follow up regardin 11/30/2024 Comments No Sex and Gender Information Value Date Recorded Sex Assigned at Not on file Legal Sex Female 11:44 AM CDT Gender Identity Not on file Sexual Orientation Not on file Last Filed Vital Signs Vital Sign Reading Time Taken Comments Blood Pressure 121/76 04/13/2024 4:16 PM CDT Pulse 96 04/13/2024 4:16 PM CDT Temperature 36.4 C (97.5 F) 04/13/2024 4:16 PM CDT Respiratory Rate 18 04/13/2024 4:16 PM CDT Oxygen Saturation 97% 04/13/2024 4:16 PM CDT Inhaled Oxygen Concentration - - Weight 107.3 kg (236 lb 9.6 oz) 04/13/2024 4:58 AM CDT Height 167.6 cm (5' 6) 04/08/2024 11:5 1 AM CDT Body Mass Index 38.19 04/08/2024 11:51 AM CDT Plan of Treatment Health Maintenance Due Date Last Done Comments DTAP/TDAP/TD VACCINES (1 - Tdap) 02/20/1996 HEPATITIS B VACCINES (1 of 3 - 19+ 3-dose series) 02/06 HPV/Cotest (21-29) 1998 CERVICAL CANCER SCREENING 2007 HPV/Cotest (30-65) 2007 PAP SMEAR 2007 BREAST CANCER SCREENING 2017 COLORECTAL SCREENING 2022 Colorectal Cancer Screening 2022 FIT-DNA Q 3 years 2022 FIT/FOBT Q 1 year 2022 Flex Sig/CT Colonography Q 5 years 2022 INFLUENZA VACCINE (#1) [address] [id number] [facility] Advance Directives For more information, please contact: [phone] * Full Code (Latest Code Status on File) Date Activated Date Inactivated Comments 04/08/2024 5:45 PM 04/13/2024 6:52 PM Care Teams Machines Technician Relationship Specialty Start Date End Date Cristela Cook MD [facility] [address] [place] [phone] PCP - General Family Practice 04/08/24
== END 2025-08-07 12:35 | disposition home or self-care (01) ==
PROVIDERS: PCP Family Medicine; Visit Provider Family Medicine
DX: G47.10 Hypersomnia, unspecified (principal); R06.81 Apnea, not elsewhere classified; I10 Essential (primary) hypertension
CPT/HCPCS: 95800